=== PATIENT | male | born 1975 | race Hispanic/Latino ===

== ENCOUNTER 2023-03-25 19:55 | Emergency (ER) | payer SELFPAY ==
--- OUTSIDE RECORDS SUMMARY | 2023-03-25 19:57 | XMS REPORT | Continuity of Care Document ---
:1975 Author Organization [facility] t Address [address] [facility] [address] [place] [id number] Care Team Providers Name Role Phone Unavailable Unavailable Unavailable Problems This patient has no known problems. Allergies, Adverse Reactions, Alerts This patient has no known allergies or adverse reactions. Medications This patient has no known medications. Procedures This patient has no known procedures. Encounters Start End Encounter Admission Attending Care Care Encounter Source Date/Time Date/Time Type Type Clinicians Facility Department ID 2023-02-22 2023-02-22 Outpatient [facility] [place] 10:15:02 10:15:02 [id number] [place] 2022-12-28 2022-12-28 Outpatient [facility] [place] 15:20:15 15:20:15 [id number] [place] 2022-10-12 2022-10-12 Outpatient [facility] [place] 08:39:44 08:39:44 [id number] F [place] Results Test Description Test Time Test Comments Results Result Comments Source VITAMIN D, 25 OH 2021-05-20 06:35:27 Test Item Value Reference Range Interpretation Comme nts VITAMIN D, 25 OH (test code 15 NG/ML SEE BELOW L NOTE: 25-HYDROXYVITAMIN D ASSAY = 4958) INCLUDES 25-HYD ROXYVITAMIN D2 AND D3. METHODOLOGY IS CHEMILUMINESCENT IMMUNOASSAY. * INTERPRETIVE RANGES PED IATRIC (<17 YEARS) . . . . . . . . . . . NG/ML 20-100ADULT: INSUFFICIENT . . . . . . . . . . . . . . NG/ML <20 S UBOPTIMAL . . . . . . . . . . . . . . . NG/ML 20-29 OPTIMAL . . . . . . . . . . . . . . . . . NG/ML 30-100 HIV 1/2 4TH GEN, RFLX [id number] 06:14:19 Test Item Value Reference Range Interpretation Comments HIV 1/2 4TH GEN, RFLX CONF (test NON-REACTIVE NON-REACTIVE code = 3514) HEPATITIS PANEL, [id number] 06:14:19 Test Item Value Reference Range Interpretation Comments HEPATITIS A IgM (test NON-REACTIVE NON-REACTIVE code = 35643) HEPATITIS B CORE IgM NON-REACTIVE NON-REACTIVE (test code = 4644) HEPATITIS B SURF AG NON-REACTIVE NON-REACTIVE (test code = 2739) HEPATITIS C ANTIBODY NON-REACTIVE NON-REACTIVE (test code = 4675) INTERPRETATION (NOTE) Hepatitis A HEPATITIS A: (test serology shows no code = 2552) evidence of acu te hepatitis A. INTERPRETATION (NOTE) Hepatitis B HEPATITIS B: (test serology shows no code = 11222) evidence of ac bethany hepatitis B and no indication of exposure to hepatitis B vir us in the previous si xto eight months. INTERPRETATION (NOTE) Hepatitis C HEPATITIS C: (test serology shows no code = 83574) evidence of ex posure to hepatitisC v irus at this time. I t can take up to 12 m onths after exposure tothe hepatitis C vir us for antibodies to become detectab le in the blood in ce rtain patients. UNLES S OTHERWISE INDIC ATED, ALL TESTING PERFORMED [facility], [address] DIRECTOR: JESSICA SHARMA M.D. CLIA NUMBER [id number] [place] [id number] HEMOGLOBIN [id number] 03:35:42 Test Item Value Reference Range Interpretation Comments HEMOGLOBIN A1c (test code = 95747) 5.9 % 4.2-5.6 H COMPREHENSIVE METABOLIC [id number] 03:17:30 Test Item Value Reference Range Interpretation Comments GLUCOSE (test code = 106 MG/DL 70-99 H 2216) BUN (test code = 15 MG/DL 6-20 2207) CREATININE (test 0.75 MG/DL 0.80-1.40 L EFFECTIVE code = 2214) 04/28/2021, [facility] HAS IMPLEMENTED THE NKF-ASN RECOMME NDED KD-EPI EGF R REFIT CALCULATI ON THAT DOES NOT INCLUDE A COEFFICIENT FOR RACE. FOR MORE INFORMATION, SE E ANNOUNCEMENT [email or web address] eGFR (2020 CKD-EPI) 114 >60 (test code = 51810) ML/MIN/1.73 CALC BUN/CREAT (test 20 RATIO 6-28 code = 2235) SODIUM (test code = 141 MEQ/L 116-883 5416) POTASSIUM (test code 4.6 MEQ/L 3.5-5.4 = 2227) CHLORIDE (test code 103 MEQ/L 95-107 = 221) CARBON DIOXIDE (test 22 MEQ/L 19-31 code = 220) CALCIUM (test code = 10.1 MG/DL 8.5-10.5 2208) PROTEIN, TOTAL (test 8.0 G/DL 6.1-8.3 code = 222) ALBUMIN (test code = 5.1 G/DL 3.5-5.2 2200) CALC GLOBULIN (test 2.9 G/DL 1.9-3.7 code = 224) CALC A/G RATIO (test 1.8 RATIO 1.0-2.6 code = 223) BILIRUBIN, TOTAL 0.2 MG/DL See_Comment [Automated message] (test code = 2207) The syste eTelemetry which generated this result transmit pepe reference range : <=1.2. The refe rence range was not u sed to interpret th is result as normal/abnormal . ALKALINE PHOSPHATASE 75 U/L 40-119 (test code = 2204) AST (test code = 25 U/L 9-50 2217) ALT (test code = 36 U/L 5-50 2218) LIPID [id number] 03:17:30 Test Item Value Reference Range Interpretation Comments CHOLESTEROL (test 245 MG/DL <200 H code = 2210) TRIGLYCERIDES (test 285 MG/DL <150 H code = 2232) HDL CHOLESTEROL (test 45 MG/DL >39 code = 2220) CALC LDL CHOL (test 153 MG/DL <100 H NOTE: C ALCULATED LDL code = 2237) IS BASED ON KYLER-BORJAS METHOD WHICHINCLUDES ADJUSTABLE TRIGLYCERIDE:VL DL CHOLESTEROL RAT IO.THIS FACTOR VARIES B Y MEASURED TRIGLY CERIDE AND NON-HDLCHOL ESTEROL CONCENTRATIONS WITH INCREASED CALCU LATED LDL SEENIN HIGH ER TRIGLYCERIDE OR LOWER NON-HDL SPECIME NS. FOR MOREINFORMATION , SEE CLIENT ANNOUNCE MENT AT [email or web address] RATIO LDL/HDL 3.40 RATIO <3.55 (test code = 2238) CBC W/AUTO DIFF WITH [id number] 02:57:35 Test Item Value Reference Range Interpretation Comments WBC (test code = 7.6 K/UL 3.5-11.0 1001) RBC (test code = 5.65 M/UL 4.50-6.10 1002) HEMOGLOBIN (test code 16.2 G/DL 13.5-17.0 = 1003) HEMATOCRIT (test code 49.3 % 40.0-51.0 = 1004) MCV (test code = 87.3 fL 80.0-99.0 1005) MCH (test code = 28.7 PG 25.0-33.0 1006) MCHC (test code = 32.9 G/DL 31.0-36.0 1007) RDW (test code = 12.9 % 11.5-15.0 1038) NEUTROPHILS (test 64.1 % code = 1008) LYMPHOCYTES (test 26.3 % code = 1010) MONOCYTES (test code 5.0 % = 1011) EOSINOPHILS (test 2.8 % code = 1012) BASOPHILS (test code 1.3 % = 1013) IMMATURE GRANYLOCYTES 0.5 % (test code = 1036) NUCLEATED RBCS (test 0.0 /100 WBC'S See_Comment [Aut omated code = 1065) message] The sy stem which generated this result transmitted reference range : 0.0. The refere nce range was not u sed to interpret th is result as normal/abnormal . PLATELET COUNT (test 274 K/UL 130-400 code = 1015) ABSOLUTE NEUTROPHILS 4.84 K/UL 1.50-7.50 (test code = 1066) ABSOLUTE LYMPHOCYTES 1.99 K/UL 1.00-4.00 (test code = 1067) ABSOLUTE MONOCYTES 0.38 K/UL 0.20-1.00 (test code = 1068) ABSOLUTE EOSINOPHILS 0.21 K/UL 0.00-0.50 (test code = 1040) ABSOLUTE BASOPHILS 0.10 K/UL 0.00-0.20 (test code = 1069) ABS IMMATURE 0.04 K/UL 0.00-0.10 GRANULOCYTES (test code = 1020) ABS NUCLEATED RBCS 0.00 K/UL 0.00-0.11 (test code = 76628) C-REACTIVE [id number] 04:13:50 Test Item Value Reference Range Interpretation Comments C-REACTIVE PROTEIN (test code = <0.3 MG/DL <0.5 3513) COMPREHENSIVE METABOLIC [id number] 04:13:33 Test Item Value Reference Range Interpretation Comments GLUCOSE (test code = 104 MG/DL 70-99 H 2216) BUN (test code = 13 MG/DL 6-20 2207) CREATININE (test 0.53 MG/DL 0.80-1.40 L EFFECTIVE code = 2214) 04/28/2021, [facility] HAS IMPLEMENTED THE NKF-ASN RECOMME NDED KD-EPI EGF R REFIT CALCULATI ON THAT DOES NOT INCLUDE A COEFFICIENT FOR RACE. FOR MORE INFORMATION, E ANNOUNCEMENT [email or web address] (2020 CKD-EPI) 127 >60 (test code = 81383) ML/MIN/1.73 CALC BUN/CREAT (test 25 RATIO 6-28 code = 2235) SODIUM (test code = 142 MEQ/L 010-392 7622) POTASSIUM (test code 4.5 MEQ/L 3.5-5.4 = 2227) CHLORIDE (test code 103 MEQ/L 95-107 = 2215) CARBON DIOXIDE (test 23 MEQ/L 19-31 code = 2206) CALCIUM (test code = 9.6 MG/DL 8.5-10.5 2208) PROTEIN, TOTAL (test 7.3 G/DL 6.1-8.3 code = 2229) ALBUMIN (test code = 5.0 G/DL 3.5-5.2 2200) CALC GLOBULIN (test 2.3 G/DL 1.9-3.7 code = 2240) CALC A/G RATIO (test 2.2 RATIO 1.0-2.6 code = 2234) BILIRUBIN, TOTAL 0.3 MG/DL See_Comment [Automated message] (test code = 2207) The syste m which generated this result transmit pepe reference range : <=1.2. The refe rence range was not u sed to interpret th is result as normal/abnormal . ALKALINE PHOSPHATASE 67 U/L 40-119 (test code = 2204) AST (test code = 21 U/L 9-50 8) ALT (test code = 23 U/L 5-50 2218) SEDIMENTATION [id number] 03:57:44 Test Item Value Reference Range Interpretation Comments SEDIMENTATION RATE 14 MM/HOUR 0-15 UNLESS O THERWISE (test code = 1017) INDICATED , ALL TESTING PERFORM [facility], [facility]. [address] [place] [address] [facility] DIRECTOR: JESSICA SHARMA M.D. CLIA NUMBER [id number] CAP ACCREDITATION N O. [id number] CBC W/AUTO DIFF WITH [id number] 03:18:31 Test Item Value Reference Range Interpretation Comments WBC (test code = 9.6 K/UL 3.5-11.0 1001) RBC (test code = 4.99 M/UL 4.50-6.10 1002) HEMOGLOBIN (test 15.5 G/DL 13.5-17.0 code = 1003) HEMATOCRIT (test 43.9 % 40.0-51.0 code = 1004) MCV (test code = 88.0 fL 80.0-99.0 1005) MCH (test code = 31.1 PG 25.0-33.0 1006) MCHC (test code = 35.3 G/DL 31.0-36.0 1007) RDW (test code = 12.9 % 11.5-15.0 1038) NEUTROPHILS (test 61.4 % NOTE: EFF ECTIVE code = 1008) 04/07/2021, REFERENCE INTER VALS AND FLAGGING FORRELATIVE (%) WBC DIFFERENTIAL WI LL BE ELIMINATED REDUNDANT TOABS OLUTE COUNTS.SEE [email or web address] _[email or web address] te LYMPHOCYTES (test 27.9 % code = 1010) MONOCYTES (test code 6.3 % = 1011) EOSINOPHILS (test 3.1 % code = 1012) BASOPHILS (test code 1.0 % = 1013) NUCLEATED RBCS (test 0.0 /100 WBC'S See_Comment [Aut omated message] code = 1065) The system [employer] generated this result transmit pepe reference range : 0.0. The refere nce range was not u sed to interpret th is result as normal/abnormal . PLATELET COUNT (test 285 K/UL 130-400 code = 1015) ABSOLUTE NEUTROPHILS 5.87 K/UL 1.50-7.50 (test code = 1066) ABSOLUTE LYMPHOCYTES 2.67 K/UL 1.00-4.00 (test code = 1067) ABSOLUTE MONOCYTES 0.60 K/UL 0.20-1.00 (test code = 1068) ABSOLUTE EOSINOPHILS 0.30 K/UL 0.00-0.50 (test code = 1040) ABSOLUTE BASOPHILS 0.10 K/UL 0.00-0.20 (test code = 1069) ABS NUCLEATED RBCS 0.00 K/UL 0.00-0.11 (test code = 35015)
--- NOTE | 2023-03-25 21:40 | RAD REPORT ---
EXAM DESCRIPTION: CT - Chest Abdomen W Con - 03/25/2023 8:53 pm CLINICAL HISTORY: TRAUMA COMPARISON: No comparisons TECHNIQUE: Thin axial CT images of the chest and abdomen, obtained following intravenous administrat ion of 100 mL Isovue-300. Multiplanar reformats were generated and reviewed. All CT scans are performed using dose optimization technique as appropriate and may include automated exposure control or mA/KV adjustment according to patient size. FINDINGS: The lungs are clear.3 millimeter right upper lobe calcified granuloma is benign in appeara nce.No pleural or pericardial effusion.No intrathoracic adenopathy. The liver, spleen, pancreas, adrenal glands, and kidneys are within normal limits. No bowel obstruction, free air, free fluid or abscess. Normal appearance of the visualized proximal a ppendix. Few scattered colonic diverticula. No pathologic lymphadenopathy in the abdomen or pelvis. No worrisome osseous finding. IMPRESSION: No acute traumatic findings in the chest and abdomen.
[2023-03-25] MEDS ORDERED: KETOROLAC 30 MG/ML INJ ONE (21:45)
[2023-03-25] MEDS ORDERED: HYDROCODONE/APAP 10/325 TAB ONE (21:45)
--- NOTE | 2023-03-25 22:01 | ER ---
Nurse's Notes [facility] Name: Dustin Cole Age: 47 yrs Sex: Male : 1975 Arrival Date: 03/25/2023 Time: 19:55 Bed 19 Private MD: Diagnosis: Chest wall contusion Presentation: 03/25 20:10 Coronavirus screen: unknown. Ebola Screen: No symptoms or risks identified at this kd3 time. Risk Assessment: Do you want to hurt yourself or someone else? Patient reports no desire to harm self or others. Onset of symptoms was March 25, 2023. 20:10 Method Of Arrival: EMS kd3 20:10 Acuity: KAELYN 3 kd3 20:11 Chief complaint: Patient states: I fell and hit my side against the chair. I did not kd3 hit my head but i am having pain in the right side of my stomach and ribs. Initial Sepsis Screen: Does the patient meet any 2 criteria? No. Patient's initial sepsis screen is negative. Does the patient have a suspected source of infection? No. Patient's initial sepsis screen is negative. 20:13 Coronavirus screen: Vaccine status: Patient reports receiving the 2nd dose of the covid kd3 vaccine. Triage Assessment: 20:13 General: Appears uncomfortable, Behavior is calm, cooperative. Pain: Complains of pain kd3 in right upper quadrant. Historical: - Allergies: 20:13 No Known Allergies; kd3 - Immunization history:: Adult Immunizations up to date. - Social history:: Smoking status: unknown. - Family history:: not pertinent. Screenin:19 [facility] ED Fall Risk Assessment (Adult) History of falling in the last 3 months, vc1 including since admission Yes- single mechanical fall (1 pt) Confusion or Disorientation No (0 pts) Intoxicated or Sedated No (0 pts) Impaired Gait No (0 pts) Mobility Assist Device Used No (0 pt) Altered Elimination No (0 pt) Score/Fall Risk Level 0 - 2 = Low Risk Oriented to surroundings, Maintained a safe environment, Educated pt \T\ family on fall prevention, incl call for assistance when getting out of bed. Abuse screen: Denies threats or abuse. Nutritional screening: No deficits noted. Tuberculosis screening: No symptoms or risk factors identified. Vital Signs: 20:11 Pulse 89; Resp 17; Temp 98.8(TE); Pulse Ox 99% on R/A; kd3 20:14 BP 138 / 75; kd3 20:15 Weight 83.46 kg; kd3 ED Course: 19:59 Patient arrived in ED. mr 19:59 Jersey Gilliland MD is Attending Physician. rt 20:10 Triage completed. kd3 20:13 Arm band placed on right wrist. kd3 20:15 Maintain EMS IV. Dressing intact. Good blood return noted. Site clean \T\ dry. Gauge \T\ kd 3 site: 18 g left A/C. 20:54 CT Chest Abdomen W/ Contrast In Process Unspecified. EDMS 22:19 Radha Eli, RN is Primary Nurse. vc1 22:19 No provider procedures requiring assistance completed. IV discontinued, intact, vc1 bleeding controlled, No redness/swelling at site. Pressure dressing applied. Administered Medications: 21:39 Drug: Ketorolac IVP 15 mg IVP once Route: IVP; Site: left antecubital; kd3 21:39 Drug: [place] PO 10 mg-325 mg 1 tabs PO once Route: PO; kd3 Medication: 22:19 VIS not applicable for this client. vc1 Outcome: 22:00 Discharge ordered by . rt 22:24 Discharged to home ambulatory, vc1 22:24 Condition: good 22:24 Discharge instructions given to patient, Instructed on discharge instructions, follow up and referral plans. Demonstrated understanding of instructions, follow-up care, 22:24 Patient left the ED. vc1 Signatures: Dispatcher [employer] EDMD Rhea Knapp, Reg Reg TorrieAsuncion RN RN kd3 Radha Eli, KAT RN vc1 Jersey Gilliland MD MD rt
--- NOTE | 2023-03-25 22:02 | EDPHYS ---
Physician Documentation [facility] Name: Dustin Cole Age: 47 yrs Sex: Male : 1975 Arrival Date: 03/25/2023 Time: 19:55 Bed 19 Private MD: ED Physician Jersey Gilliland HPI: 03/25 20:17 This 47 yrs old Male presents to ER via EMS with complaints of Fall Injury. rt 20:17 Patient presents to the ED with a fall. He states that he fell hitting onto an armrest. rt Reports pain to the right lower rib margin as well as the epigastrium, lower chest region. Denies loss of consciousness. Denies other injury or other acute complaints. Symptoms are moderate severity, aching nature, nonradiating, no other aggravating or elevating factors.. Historical: - Allergies: 20:13 No Known Allergies; kd3 - Immunization history:: Adult Immunizations up to date. - Social history:: Smoking status: unknown. - Family history:: not pertinent. ROS: 20:17 Constitutional: Negative for fever, chills, and weight loss, Neck: Negative for injury, rt pain, and swelling, Respiratory: Negative for shortness of breath, cough, wheezing, and pleuritic chest pain, Abdomen/GI: Negative for abdominal pain, nausea, vomiting, diarrhea, and constipation, MS/Extremity: Negative for injury and deformity, Skin: Negative for injury, rash, and discoloration, Neuro: Negative for headache, weakness, numbness, tingling, and seizure, Psych: Negative for depression, anxiety, suicide ideation, homicidal ideation, and hallucinations, 20:17 Cardiovascular: Positive for Chest wall pain, negative for edema, 20:17 Abdomen/GI: Positive for abdominal pain, Negative for nausea and vomiting, Exam: 20:17 Constitutional: This is a well developed, well nourished patient who is awake, alert, rt and in no acute distress. Head/Face: Normocephalic, atraumatic. Neck: Trachea midline, no thyromegaly or masses palpated, and no cervical lymphadenopathy. Supple, full range of motion without nuchal rigidity, or vertebral point tenderness. No Meningismus. Cardiovascular: Regular rate and rhythm with a normal S1 and S2. No gallops, murmurs, or rubs. Normal PMI, no JVD. No pulse deficits. Respiratory: Lungs have equal breath sounds bilaterally, clear to auscultation and percussion. No rales, rhonchi or wheezes noted. No increased work of breathing, no retractions or nasal flaring. Skin: Warm, dry with normal turgor. Normal color with no rashes, no lesions, and no evidence of cellulitis. MS/ Extremity: Pulses equal, no cyanosis. Neurovascular intact. Full, normal range of motion. Neuro: Awake and alert, GCS 15, oriented to person, place, time, and situation. Cranial nerves II-XII grossly intact. Motor strength 5/5 in all extremities. Sensory grossly intact. Cerebellar exam normal. Normal gait. Psych: Awake, alert, with orientation to person, place and time. Behavior, mood, and affect are within normal limits. 20:17 Chest/axilla: Small mount of bruising with tenderness to the right anterior chest wall, no crepitus felt. 20:17 Abdomen/GI: Tenderness to the epigastrium without rebound, guarding, distention, Vital Signs: 20:11 Pulse 89; Resp 17; Temp 98.8(TE); Pulse Ox 99% on R/A; kd3 20:14 BP 138 / 75; kd3 20:15 Weight 83.46 kg; kd3 MDM: 20:16 Patient medically screened. rt 22:28 Differential diagnosis: Rib fracture, intra-abdominal injury, chest wall contusion. rt Data reviewed: vital signs, nurses notes, radiologic studies. I considered the following discharge prescriptions or medication management in the emergency department Medications were administered in the Emergency Department. See MAR. Independent interpretation of the following test(s) in the Emergency Department CT Scan: My interpretation is No pneumothorax seen on interpretation of CT scan images. Counseling: I had a detailed discussion with the patient and/or guardian regarding the historical points, exam findings, and any diagnostic results supporting the discharge/admit diagnosis, radiology results, the need for outpatient follow up, to return to the emergency department if symptoms worsen or persist or if there are any questions or concerns that arise at home. Response to treatment: the patient's symptoms have markedly improved after treatment. 03/25 22:13 Order name: CREATININE WHOLE BLOOD; Complete Time: 22:17 EDMS 03/25 20:13 Order name: CT Chest Abdomen W/ Contrast; Complete Time: 21:41 rt Administered Medications: 21:39 Drug: Ketorolac IVP 15 mg IVP once Route: IVP; Site: left antecubital; kd3 21:39 Drug: [place] PO 10 mg-325 mg 1 tabs PO once Route: PO; kd3 Disposition Summary: 03/25/23 22:00 Discharge Ordered Notes: Location: Home rt Problem: new rt Symptoms: have improved rt Condition: Stable rt Diagnosis - Chest wall contusion rt Followup: rt - With: Private Physician - When: 2 - 3 days - Reason: Discharge Instructions: - Discharge Summary Sheet rt - Chest Contusion, Adult rt Forms: - Medication Reconciliation Form rt - Thank You Letter rt - Antibiotic Education rt - Prescription Opioid Use rt - Patient Portal Instructions rt - Leadership Thank You Letter rt Signatures: Dispatcher [employer] Asuncion Swain RN RN kd3 Jersey Gilliland MD MD rt
[2023-03-25 22:38] VITALS: TEMP 98.8; O2SAT 99
[2023-03-25 22:40] VITALS: BP 138/75
== END 2023-03-25 22:24 | disposition home or self-care (01) ==
LOC: ER 19:55
DX: S20.211A Contusion of right front wall of thorax, initial encounter (principal)
CPT/HCPCS: 71260; 74160; 82565; 96374; 99284; Q9967

== ENCOUNTER 2024-05-21 14:39 | Emergency (ER) | payer SELFPAY ==
--- OUTSIDE RECORDS SUMMARY | 2024-05-21 14:42 | XMS REPORT | Continuity of Care Document ---
Author Name Unknown Address [address] [facility] [address] [place] [address] [facility] Address [address] [facility] [address] [place] [address] Care Team Providers Care Cold Type Artist Name Role Phone Unavailable Unavailable Unavailable Encounters Start Date/Time End Date/Time Encounter Type Admission Type Attending Clinicians Care Facility Care Department Encounter ID Source 2023-02-22 10:15:02 2023-02-22 10:15:02 Outpatient [facility] [id number] Dillon Pederson 2022-12-28 15:20:15 2022-12-28 15:20:15 Outpatient [facility] [id number] Dillon De La Fuente Bg 2022-10-12 08:39:44 2022-10-12 08:39:44 Outpatient [facility] [id number] Dillon Pederson Results Test Description Test Time Test Comments Results Result Co mments Source HIV 1/2 4TH GEN, RFLX [id number] 06:14:19* Test Item Value Reference Range Interpretation Comme nts HIV 1/2 4TH GEN, RFLX CONF ( test code = 3514) NON-REACTIVE NON-REACTIVE HEPATITIS PANEL, [id number] 06:14:19* Test Item Value Reference Range Interpretation Comme nts HEPATITIS A IgM (test code = 51472) NON-REACTIVE NON-REACTIVE HEPATITIS B CORE IgM (test code = 4644) NON-REACTIVE NON-REACTIVE HEPATITIS B SURF AG (test code = 2739) NON-REACTIVE NON-REACTIVE HEPATITIS C ANTIBODY (test code = 4675) NON-REACTIVE NON-REACTIVE INTERPRETATION HEPATITIS A: (test code = 2552) (NOTE) Hepatitis A sero logy shows no evidence of acute hepatitis A. INTERPRETATION HEPATITIS B: (test code = 91186) (NOTE) Hepatitis B sero logy shows no evidence of acute hepatitis B andno indication of exposure to hepatitis B virus in the previous cisco eight months. INTERPRETATION HEPATITIS C: (test code = 13199) (NOTE) Hepatitis C sero logy shows no evidence of exposure to hepatitisC virus at this time. It can take up to 12 months after exposure tothe hepatitis C virus for antibodies to become detectable in the blood in certain patients. UNLESS OTHERWISE INDICATED, ALL TESTING PERFORMED [facility] [employer] [address] [place] [address] FIELD ADVISOR: JESSICA SHARMA M.D. [place] NUMBER [id number] [place]. [id number] HEMOGLOBIN [id number] 03:35:42* Test Item Value Reference Range Interpretation Comme nts HEMOGLOBIN A1c (test code = 93294) 5.9 % 4.2-5.6 H LIPID [id number] 03:17:30* Test Item Value Reference Range Interpretation Comme nts CHOLESTEROL (test code = 2210) 245 MG/DL <200 H TRIGLYCERIDES (test code = 2232) 285 MG/DL <150 H HDL CHOLESTEROL (test code = 2220) 45 MG/DL >39 CALC LDL CHOL (test code = 2237) 153 MG/DL <100 H NOTE: CALCULATED LDL IS BASED ON KYLER-BORJAS METHOD WHICHINCLUDES ADJUSTABLE TRIGLYCERIDE:VLDL CHOLESTEROL RATIO.THIS FACTOR VARIES BY MEASURED TRIGLYCERIDE AND NON-HDLCHOLESTEROL CONCENTRATIONS WITH INCREASED CALCULATED LDL SEENIN HIGHER TRIGLYCERIDE OR LOWER NON-HDL SPECIMENS. FOR MOREINFORMATION, SEE CLIENT ANNOUNCEMENT AT [email or web address] RISK RATIO LDL/HDL (test code = 2238) 3.40 RATIO <3.55 COMPREHENSIVE METABOLIC [id number] 03:17:30* Test Item Value Reference Range Interpretation Comme nts GLUCOSE (test code = 2217) 106 MG/DL 70-99 H BUN (test code = 2208) 15 MG/DL 6-20 CREATININE (test code = 2214) 0.75 MG/DL 0.80-1.40 L EFFECTIVE 04/28/2021, [facility] HAS IMPLEMENTED THE NKF-ASN RECOMMENDED KD-EPI EGFR REFIT CALCULATION THAT DOES NOT INCLUDE A COEFFICIENT FORRACE. FOR MORE INFORMATION, SEE ANNOUNCEMENT [email or web address] eGFR (2020 CKD-EPI) (test code = ) 114 ML/MIN/1.73 >60 CALC BUN/CREAT (test code = 2234) 20 RATIO 6-28 SODIUM (test code = 2230) 141 MEQ/L 133-146 POTASSIUM (test code = 2227) 4.6 MEQ/L 3.5-5.4 CHLORIDE (test code = 2214) 103 MEQ/L 95-107 CARBON DIOXIDE (test code = 2205) 22 MEQ/L 19-31 CALCIUM (test code = 2208) 10.1 MG/DL 8.5-10.5 PROTEIN, TOTAL (test code = 2228) 8.0 G/DL 6.1-8.3 ALBUMIN (test code = 2200) 5.1 G/DL 3.5-5.2 CALC GLOBULIN (test code = 2239) 2.9 G/DL 1.9-3.7 CALC A/G RATIO (test code = 2233) 1.8 RATIO 1.0-2.6 BILIRUBIN, TOTAL (test code = 2206) 0.2 MG/DL See_Comment [Automated me ssage] The system which generated this result transmitted reference range: <=1.2. The reference range was not used to interpret this result as normal/abnormal. ALKALINE PHOSPHATASE (test code = 2203) 75 U/L 40-119 AST (test code = 2217) 25 U/L 9-50 ALT (test code = 2218) 36 U/L 5-50 CBC W/AUTO DIFF WITH [id number] 02:57:35* Test Item Value Reference Range Interpretation Comme nts WBC (test code = 1001) 7.6 K/UL 3.5-11.0 RBC (test code = 1002) 5.65 M/UL 4.50-6.10 HEMOGLOBIN (test code = 1003) 16.2 G/DL 13.5-17.0 HEMATOCRIT (test code = 1004) 49.3 % 40.0-51.0 MCV (test code = 1005) 87.3 fL 80.0-99.0 MCH (test code = 1006) 28.7 PG 25.0-33.0 MCHC (test code = 1007) 32.9 G/DL 31.0-36.0 RDW (test code = 1038) 12.9 % 11.5-15.0 NEUTROPHILS (test code = 1008) 64.1 % LYMPHOCYTES (test code = 1010) 26.3 % MONOCYTES (test code = 1011) 5.0 % EOSINOPHILS (test code = 1012) 2.8 % BASOPHILS (test code = 1013) 1.3 % IMMATURE GRANYLOCYTES (test code = 1036) 0.5 % NUCLEATED RBCS (test code = 1065) 0.0 /100 WBC'S See_Comment [Automated messa ge] The system which generated this result transmitted reference range: 0.0. The reference range was not used to interpret this result as normal/abnormal. PLATELET COUNT (test code = 1015) 274 K/UL 130-400 ABSOLUTE NEUTROPHILS (test code = 1066) 4.84 K/UL 1.50-7.50 ABSOLUTE LYMPHOCYTES (test code = 1067) 1.99 K/UL 1.00-4.00 ABSOLUTE MONOCYTES (test code = 1068) 0.38 K/UL 0.20-1.00 ABSOLUTE EOSINOPHILS (test code = 1040) 0.21 K/UL 0.00-0.50 ABSOLUTE BASOPHILS (test code = 1069) 0.10 K/UL 0.00-0.20 ABS IMMATURE GRANULOCYTES (test code = 1020) 0.04 K/UL 0.00-0.10 ABS NUCLEATED RBCS (test code = 08215) 0.00 K/UL 0.00-0.11 C-REACTIVE [id number] 04:13:50* Test Item Value Reference Range Interpretation Comme nts C-REACTIVE PROTEIN (test cod e = 3513) <0.3 MG/DL <0.5 COMPREHENSIVE METABOLIC [id number] 04:13:33* Test Item Value Reference Range Interpretation Comme nts GLUCOSE (test code = 2217) 104 MG/DL 70-99 H BUN (test code = 2208) 13 MG/DL 6-20 CREATININE (test code = 2214) 0.53 MG/DL 0.80-1.40 L EFFECTIVE 04/28/2021, [facility] HAS IMPLEMENTED THE NKF-ASN RECOMMENDED KD-EPI EGFR REFIT CALCULATION THAT DOES NOT INCLUDE A COEFFICIENT FORRACE. FOR MORE INFORMATION, SEE ANNOUNCEMENT [email or web address] eGFR (2020 CKD-EPI) (test code = ) 127 ML/MIN/1.73 >60 CALC BUN/CREAT (test code = 2234) 25 RATIO 6-28 SODIUM (test code = 2230) 142 MEQ/L 133-146 POTASSIUM (test code = 2227) 4.5 MEQ/L 3.5-5.4 CHLORIDE (test code = 2214) 103 MEQ/L 95-107 CARBON DIOXIDE (test code = 2205) 23 MEQ/L 19-31 CALCIUM (test code = 2208) 9.6 MG/DL 8.5-10.5 PROTEIN, TOTAL (test code = 2228) 7.3 G/DL 6.1-8.3 ALBUMIN (test code = 2200) 5.0 G/DL 3.5-5.2 CALC GLOBULIN (test code = 2239) 2.3 G/DL 1.9-3.7 CALC A/G RATIO (test code = 2233) 2.2 RATIO 1.0-2.6 BILIRUBIN, TOTAL (test code = 2206) 0.3 MG/DL See_Comment [Automated me ssage] The system which generated this result transmitted reference range: <=1.2. The reference range was not used to interpret this result as normal/abnormal. ALKALINE PHOSPHATASE (test code = 2203) 67 U/L 40-119 AST (test code = 2217) 21 U/L 9-50 ALT (test code = 2218) 23 U/L 5-50 SEDIMENTATION [id number] 03:57:44* Test Item Value Reference Range Interpretation Comme nts SEDIMENTATION RATE (test code = 1017) 14 MM/HOUR 0-15 UNLESS OTHERW ISE INDICATED, ALL TESTING PERFORMED [facility] [address] [place] [id number] FIELD ADVISOR: JESSICA SHARMA M.D. CLIA NUMBER [id number] [place]. [id number] CBC W/AUTO DIFF WITH [id number] 03:18:31* Test Item Value Reference Range Interpretation Comme nts WBC (test code = 1001) 9.6 K/UL 3.5-11.0 RBC (test code = 1002) 4.99 M/UL 4.50-6.10 HEMOGLOBIN (test code = 1003) 15.5 G/DL 13.5-17.0 HEMATOCRIT (test code = 1004) 43.9 % 40.0-51.0 MCV (test code = 1005) 88.0 fL 80.0-99.0 MCH (test code = 1006) 31.1 PG 25.0-33.0 MCHC (test code = 1007) 35.3 G/DL 31.0-36.0 RDW (test code = 1038) 12.9 % 11.5-15.0 NEUTROPHILS (test code = 1008) 61.4 % NOTE: EFFECTIVE 04/07/2021, REFERENCE INTERVALS AND FLAGGING FORRELATIVE (%) WBC DIFFERENTIAL WILL BE ELIMINATED REDUNDANT TOABSOLUTE COUNTS.SEE [email or web address] te LYMPHOCYTES (test code = 1010) 27.9 % MONOCYTES (test code = 1011) 6.3 % EOSINOPHILS (test code = 1012) 3.1 % BASOPHILS (test code = 1013) 1.0 % NUCLEATED RBCS (test code = 1065) 0.0 /100 WBC'S See_Comment [Automated message] The system which generated this result transmitted reference range: 0.0. The reference range was not used to interpret this result as normal/abnormal. PLATELET COUNT (test code = 1015) 285 K/UL 130-400 ABSOLUTE NEUTROPHILS (test code = 1066) 5.87 K/UL 1.50-7.50 ABSOLUTE LYMPHOCYTES (test code = 1067) 2.67 K/UL 1.00-4.00 ABSOLUTE MONOCYTES (test code = 1068) 0.60 K/UL 0.20-1.00 ABSOLUTE EOSINOPHILS (test code = 1040) 0.30 K/UL 0.00-0.50 ABSOLUTE BASOPHILS (test code = 1069) 0.10 K/UL 0.00-0.20 ABS NUCLEATED RBCS (test code = 01554) 0.00 K/UL 0.00-0.11
[2024-05-21] MEDS ORDERED: NA CHLORIDE 0.9% 1,000 ML ONE (16:21)
[2024-05-21 16:37] LABS: Absolute Basophils 0.1 K/uL (0-0.5); Absolute Eosinophils 0.2 K/uL (0-0.5); Absolute Lymphocytes (CBC) 2.4 K/uL (0.7-4.9); Absolute Monocytes 0.5 K/uL (0.1-1.3); Absolute Neutrophil 6.3 K/uL (1.8-8.0); Eosinophils % 1.8 % (0-4.4); Hematocrit 44.2 % (39.6-49.0); Lymphocytes % 24.9 % (15.3-44.8); MCH 29.5 pg (27.0-35.0); MCHC 33.9 g/dL (32.0-36.0); MPV 7.4 fL (7.6-11.3); Monocytes % 5.7 % (3.3-12.3); Neutrophils % 66.6 % (41.7-73.7); Nucleated Red Blood Cells % 0.2 % (0-0); Platelets 338 thou/uL (152-406); RBC Red Blood Cell Count 5.08 M/uL (4.33-5.43); Red Cell Distribution Width 12.9 % (12.1-15.2)
--- NOTE | 2024-05-21 16:37 | RAD REPORT ---
Procedure: Chest Single View HISTORY: Chest pain COMPARISON: 2022 FINDINGS: The lungs appear clear of acute infiltrate. No significant pleural effusion noted. The heart is normal size. IMPRESSION: No acute abnormality is displayed.
[2024-05-21 16:55] LABS: Anion Gap 9.1 mEq/L (5.0-15.0); Potassium 4.1 mEq/L (3.5-5.1); Troponin High Sensitivity 6.6 pg/mL (<58.9)
--- NOTE | 2024-05-21 17:05 | ER ---
Nurse's Notes [facility] Name: Dustin Cole Age: 48 yrs Sex: Male : 1975 Arrival Date: 05/21/2024 Time: 14:39 Bed 5 Private MD: Diagnosis: Palpitations Presentation: 05/21 15:12 Chief complaint: Patient states: drank a monster energy drink this morning and then had cm10 2 episodes of palpitations and blurred vision. Pt states that he feels fine now. No pain. Pt reports drinking 1 energy drink daily. Coronavirus screen: Client denies travel out of the [place] in the last 14 days. Ebola Screen: Patient denies travel to an Ebola-affected area in the 21 days before illness onset. No symptoms or risks identified at this time. Initial Sepsis Screen: Does the patient meet any 2 criteria? No. Patient's initial sepsis screen is negative. Does the patient have a suspected source of infection? No. Patient's initial sepsis screen is negative. Risk Assessment: Do you want to hurt yourself or someone else? Patient reports no desire to harm self or others. Onset of symptoms was May 21, 2024. 15:12 Method Of Arrival: Ambulatory cm10 15:12 Acuity: KAELYN 3 cm10 Triage Assessment: 15:13 General: Appears in no apparent distress. comfortable, Behavior is calm, cooperative. cm10 Pain: Denies pain. Neuro: No deficits noted. Level of Consciousness is awake, alert, obeys commands, Oriented to person, place, time, situation, Appropriate for age. Respiratory: No deficits noted. Airway is patent Respiratory effort is even, unlabored, Respiratory pattern is regular, symmetrical. Historical: - Allergies: 15:13 No Known Allergies; cm10 - Home Meds: 15:13 None [Active]; cm10 - PMHx: 15:13 None; cm10 - PSHx: 15:13 None; cm10 - Immunization history:: Adult Immunizations up to date. - Infectious Disease History:: Denies. - Social history:: Smoking status: Patient reports the use of cigarette tobacco products, denies chronic smoking, but will smoke occasionally. Screenin:48 [facility] ED Fall Risk Assessment (Adult) History of falling in the last 3 months, ko1 including since admission No falls in past 3 months (0 pts) Confusion or Disorientation No (0 pts) Intoxicated or Sedated No (0 pts) Impaired Gait No (0 pts) Mobility Assist Device Used No (0 pt) Altered Elimination No (0 pt) Score/Fall Risk Level 0 - 2 = Low Risk Oriented to surroundings, Maintained a safe environment, Educated pt \T\ family on fall prevention, incl call for assistance when getting out of bed, Assessed \T\ reinforced patient's understanding of fall precautions, Hourly rounding (assess needs \T\ fall precautionary measures) done. Abuse screen: Denies threats or abuse. Denies injuries from another. Nutritional screening: No deficits noted. Tuberculosis screening: No symptoms or risk factors identified. Assessment: 16:48 General: Appears in no apparent distress. Behavior is calm, cooperative, appropriate ko1 for age. Pain: Denies pain. Neuro: No deficits noted. Cardiovascular: Reports palpitations. Respiratory: No deficits noted. GI: No deficits noted. No signs and/or symptoms were reported involving the gastrointestinal system. : No deficits noted. No signs and/or symptoms were reported regarding the genitourinary system. EENT: No deficits noted. No signs and/or symptoms were reported regarding the EENT system. Derm: No deficits noted. No signs and/or symptoms reported regarding the dermatologic system. Musculoskeletal: No deficits noted. No signs and/or symptoms reported regarding the musculoskeletal system. Vital Signs: 15:12 BP 137 / 93; Pulse 82; Resp 16; Temp 98.4(O); Pulse Ox 98% on R/A; Weight 81.65 kg; cm10 Height 5 ft. 3 in. ; Pain 0/10; 16:50 BP 130 / 79; Pulse 87; Resp 16; Pulse Ox 100% ; ko1 17:03 BP 130 / 86; Pulse 83; Resp 14; Pulse Ox 100% ; ko1 15:12 Body Mass Index 31.11 (81.65 kg, 162 cm) cm10 15:12 Pain Scale: Adult cm10 ED Course: 14:44 Patient arrived in ED. sj2 15:13 Triage completed. cm10 15:14 Arm band placed on right wrist. Patient placed in waiting room. cm10 15:29 Marquez Maldonado FNP-C is PHCP. dr5 16:29 XRAY Chest (1 view) In Process Unspecified. EDMS 16:30 No provider procedures requiring assistance completed. Initial lab(s) drawn, by al, ko1 sent to lab. EKG done, by ED staff, reviewed by Marquez CASTILLO. Inserted saline lock: 20 gauge in left antecubital area, using aseptic technique. Blood collected. Flushed with 10 mL NS. 16:32 Basic Metabolic Panel Sent. ko1 16:32 CBC with Diff Sent. ko1 16:32 Troponin HS Sent. ko1 16:48 Oneida Buckner, RN is Primary Nurse. ko1 16:48 Patient has correct armband on for positive identification. Bed in low position. Call ko1 light in reach. Side rails up X 1. Provided Education on: lab. Client placed on continuous cardiac and pulse oximetry monitoring. NIBP monitoring applied. user experience developer on. Door closed. Noise minimized. Lights dimmed. Warm blanket given. Pillow given. 17:04 Lazaro Roque MD is Attending Physician. dr5 17:04 IV discontinued, intact, bleeding controlled, No redness/swelling at site. Pressure ko1 dressing applied. Administered Medications: 16:32 Drug: NS 0.9% IV 1000 ml IV at 1000 ml once; to be given as a bolus over 60 minutes ko1 Route: IV; Rate: 1000 ml; Site: left antecubital; 17:05 Follow up: Response: No adverse reaction; IV Status: Completed infusion; IV Intake: ko1 1000ml Medication: 16:48 VIS not applicable for this client. ko1 Intake: 17:05 IV: 1000ml; Total: 1000ml. ko1 Outcome: 17:04 Discharge ordered by . dr5 17:04 Discharged to home ambulatory, with family, ko1 17:04 Condition: stable 17:04 Discharge instructions given to patient, family, Instructed on discharge instructions, follow up and referral plans. medication usage, Demonstrated understanding of instructions, follow-up care, medications, 17:05 Prescriptions given X 1, ko1 17:11 Patient left the ED. ko1 Signatures: Dispatcher [employer] EDMS Oneida Buckner, RN RN ko1 Janeth Fox RN RN cm10 Nilesh Shi sj2 Marquez Maldonado, ALETHA-Gracia FIXED INCOME TRADING VICE PRESIDENT-Cdr5 Corrections: (The following items were deleted from the chart) 15:13 15:13 Home Meds: Unable to obtain; cm10 cm10 17:05 17:04 Discharge instructions given to patient, family, Instructed on discharge ko1 instructions, follow up and referral plans. Demonstrated understanding of instructions, follow-up care, ko1
--- NOTE | 2024-05-21 17:05 | EDPHYS ---
[facility] Name: Dustin Cole Age: 48 yrs Sex: Male : 1975 Arrival Date: 05/21/2024 Time: 14:39 Bed 5 Private MD: ED Physician Lazaro Roque HPI: 05/21 17:08 This 48 yrs old Male presents to ER via Ambulatory with complaints of NOT dr5 FEELING WELL AFTER DRINKING ENERGY DRINK. 17:08 Patient is a 48-year-old male with no past medical history coming in for headache, dr5 palpitations, not feeling well after drinking a Monster this morning. Patient reports that he was resting at home with mild relief but wanted to come to the hospital make sure he was okay. Patient denies past medical history, daily medications, surgeries. Patient states he drinks a Monster daily.. Historical: - Allergies: 15:13 No Known Allergies; cm10 - Home Meds: 15:13 None [Active]; cm10 - PMHx: 15:13 None; cm10 - PSHx: 15:13 None; cm10 - Immunization history:: Adult Immunizations up to date. - Infectious Disease History:: Denies. - Social history:: Smoking status: Patient reports the use of cigarette tobacco products, denies chronic smoking, but will smoke occasionally. ROS: 17:08 Constitutional: as per hpi dr5 Exam: 17:08 Constitutional: This is a well developed, well nourished patient who is awake, alert, dr5 and in no acute distress. Head/Face: Normocephalic, atraumatic. Eyes: Pupils equal round and reactive to light, extra-ocular motions intact. Lids and lashes normal. Conjunctiva and sclera are non-icteric and not injected. Cornea within normal limits. Periorbital areas with no swelling, redness, or edema. Neck: Trachea midline, no thyromegaly or masses palpated, and no cervical lymphadenopathy. Supple, full range of motion without nuchal rigidity, or vertebral point tenderness. No Meningismus. Chest/axilla: Normal chest wall appearance and motion. Nontender with no deformity. No lesions are appreciated. Cardiovascular: Regular rate and rhythm with a normal S1 and S2. Normal PMI, no JVD. No pulse deficits. Back: No spinal tenderness. No costovertebral tenderness. Full range of motion. Skin: Warm, dry with normal turgor. Normal color with no rashes, no lesions, and no evidence of cellulitis. Neuro: Awake and alert, GCS 15, oriented to person, place, time, and situation. Cranial nerves II-XII grossly intact. Motor strength 5/5 in all extremities. Sensory grossly intact. Cerebellar exam normal. Normal gait. Vital Signs: 15:12 BP 137 / 93; Pulse 82; Resp 16; Temp 98.4(O); Pulse Ox 98% on R/A; Weight 81.65 kg; cm10 Height 5 ft. 3 in. ; Pain 0/10; 16:50 BP 130 / 79; Pulse 87; Resp 16; Pulse Ox 100% ; ko1 17:03 BP 130 / 86; Pulse 83; Resp 14; Pulse Ox 100% ; ko1 15:12 Body Mass Index 31.11 (81.65 kg, 162 cm) cm10 15:12 Pain Scale: Adult cm10 MDM: 15:30 Medical Screening Exam initiated dr5 17:08 Differential diagnosis: viral Infection, bacterial infection, Electrolyte Abnormality. dr5 Data reviewed: vital signs, nurses notes, lab test result(s), radiologic studies, plain films. I considered the following discharge prescriptions or medication management in the emergency department Medications were administered in the Emergency Department. See MAR. Care significantly affected by the following Social Determinants of Health: Poor access to healthcare and/or lack of insurance, Poor access to transportation, Problems related to employment. Counseling: I had a detailed discussion with the patient and/or guardian regarding the historical points, exam findings, and any diagnostic results supporting the discharge/admit diagnosis, the presence of at least one elevated blood pressure reading (>120/80) during this emergency department visit, the need for outpatient follow up, for definitive care, a family practitioner, to return to the emergency department if symptoms worsen or persist or if there are any questions or concerns that arise at home. Medication response: NS. Response to treatment: the patient's symptoms have resolved after treatment. ED course: Supervisor [employer] used (Janeth [id number]) for examination and diagnosis/plan. No electrolyte abnormality, chest x-ray is normal. Patient is feeling much better. No complaints at this time. No pain. NS given. Will have patient follow up with PCP and recommended decreasing caffeine intake.. 05/21 15:29 Order name: Basic Metabolic Panel; Complete Time: 17:02 dr5 05/21 15:29 Order name: CBC with Diff; Complete Time: 16:42 [facility] 05/21 15:29 Order name: Troponin HS; Complete Time: 17:02 dr5 05/21 15:29 Order name: XRAY Chest (1 view); Complete Time: 16:42 dr5 05/21 15:29 Order name: EKG; Complete Time: 15:30 [facility] 05/21 15:29 Order name: Cardiac monitoring; Complete Time: 16:08 dr5 05/21 15:29 Order name: EKG - Nurse/Tech; Complete Time: 16:18 dr5 05/21 15:29 Order name: IV Saline Lock; Complete Time: 16:32 [facility] 05/21 15: Order name: Labs collected and sent; Complete Time: 16:32 [facility] 05/21 15:29 Order name: O2 Per Protocol; Complete Time: 16:08 [facility] 05/21 15:29 Order name: O2 Sat Monitoring; Complete Time: 16:08 [facility] EC:15 Rate is 80 beats/min. Rhythm is regular. QRS [place] is Normal. WA interval is normal at dr5 152 msec. QRS interval is normal at 74 msec. QT interval is normal at 366 msec. Administered Medications: 16:32 Drug: NS 0.9% IV 1000 ml IV at 1000 ml once; to be given as a bolus over 60 minutes ko1 Route: IV; Rate: 1000 ml; Site: left antecubital; 17:05 Follow up: Response: No adverse reaction; IV Status: Completed infusion; IV Intake: ko1 1000ml Disposition Summary: 05/21/24 17:04 Discharge Ordered Notes: Location: Home dr5 Condition: Stable dr5 Diagnosis - Palpitations dr5 Followup: dr5 - With: Emergency Department - When: As needed - Reason: Worsening of condition Followup: dr5 - With: Private Physician - When: 1 - 2 days - Reason: Recheck today's complaints, Continuance of care, Re-evaluation by your physician Discharge Instructions: - Discharge Summary Sheet dr5 - Caffeine Use Disorder dr5 Forms: - Medication Reconciliation Form dr5 - Patient Portal Instructions dr5 - Leadership Thank You Letter dr5 Prescriptions: - Zofran 4 mg Oral Tablet - take 1 tablet ORAL route every 12 hours As needed; 20 tablet; Refills: 0, dr5 Product Selection Permitted Addendum: 05/23/2024 15:28 Co-signature as Attending Physician, Lazaro Roque MD I agree with the assessment and c ruelas plan of care. Signatures: Dispatcher [employer] Lazaro Pastrana MD MD cha Oliver, Kathy RN RN ko1 Janeth Fox RN RN cm10 Marquez Maldonado, TALENT DEVELOPMENT COORDINATOR-C TALENT DEVELOPMENT COORDINATOR-Cdr5 Corrections: (The following items were deleted from the chart) 05/21 15:13 15:13 Home Meds: Unable to obtain; [place] [id number]
[2024-05-21 17:53] VITALS: TEMP 98.4
[2024-05-21 17:54] VITALS: O2SAT 100
[2024-05-21 17:55] VITALS: BP 130/86
--- NOTE | 2024-05-29 11:12 | EKG ---
Test Date: 2024-05-21 Test Time: 16:15:43 Cutter Barrel Drum: BRITTANY MEASUREMENT RESULTS: Intervals: Rate: 80 TN: 152 QRSD: 74 QT: 366 QTc: 422 [place]: P: 57 TN: 152 QRS: 60 T: 4 INTERPRETIVE STATEMENTS: Normal sinus rhythm Nonspecific ST and T wave abnormality Abnormal ECG No previous ECG available for comparison Electronically Signed On 05-29-24 11:01:20 AUTOMOTIVE PARTS PERSON by Hussein Feliz
== END 2024-05-21 17:11 | disposition home or self-care (01) ==
LOC: ER 14:39
DX: R00.2 Palpitations (principal)
CPT/HCPCS: 36415; 71045; 80048; 84484; 85025; 93005; 96360; 99285; J7030